=== PATIENT | female | born 1945 | race Caucasian/White ===

== ENCOUNTER 2016-09-18 15:07 | Inpatient (IN) | payer MEDICARE, OTHER ==
[2016-09-18 11:55] LABS: HCT 42.4 % (37.0-47.0); HGB 14.8 g/dl (12.5-16.0); MCH 30.3 pg (25.0-31.0); MCHC 34.9 g/dL (32.0-36.0); MCV 86.9 fL (78.0-100.0); MPV 10.5 fL (6.0-9.5); RBC 4.88 M/uL (4.20-5.40); RDW 12.9 % (11.5-14.0); WBC 8.2 K/uL (4.0-10.5)
[2016-09-18 12:04] LABS: INR 1.03 (0.9-1.2); PROTHROMBIN TIME 13.1 SECONDS (11.7-14.0)
[2016-09-18 12:05] LABS: PTT 28.9 SECONDS (23.2-31.4)
[2016-09-18 12:11] LABS: ALBUMIN 4.9 g/dL (3.4-4.8); BILIRUBIN - TOTAL 0.4 mg/dL (0.1-1.0); CREATININE 0.5 mg/dL (0.5-1.0); POTASSIUM 4.5 mmol/L (3.5-5.1); TOTAL PROTEIN 7.9 g/dL (6.4-8.3)
[~2016-09-18 15:07] MED LIST: AMBIEN5 MG PO; ASPIRIN CHEWABL81 MG PO; FIORICET1 EACH PO; LIPITOR40 MG PO; LOVAZA1 GM PO; PROTONIX40 MG PO; TIMOPTIC OU; VITAMIN D5000 UNIT PO; ZESTORETIC 20-1 EAC1 PO
[2016-09-19 04:27] LABS: HCT 32.7 % (37.0-47.0); HGB 11.1 g/dl (12.5-16.0); MCH 30.5 pg (25.0-31.0); MCHC 33.9 g/dL (32.0-36.0); MCV 89.8 fL (78.0-100.0); RBC 3.64 M/uL (4.20-5.40); RDW 12.5 % (11.5-14.0)
[2016-09-19 04:30] LABS: WBC 19.3 K/uL (4.0-10.5)
[2016-09-19 04:36] LABS: CREATININE 0.6 mg/dL (0.5-1.0); POTASSIUM 3.2 mmol/L (3.5-5.1)
[2016-09-20 05:09] LABS: HCT 29.5 % (37.0-47.0); HGB 9.9 g/dl (12.5-16.0); MCH 30.5 pg (25.0-31.0); MCHC 33.6 g/dL (32.0-36.0); MCV 90.8 fL (78.0-100.0); MPV 10.5 fL (6.0-9.5); RBC 3.25 M/uL (4.20-5.40); RDW 12.5 % (11.5-14.0); WBC 12.3 K/uL (4.0-10.5)
[2016-09-20 05:32] LABS: CREATININE 0.6 mg/dL (0.5-1.0)
[2016-09-21 05:20] LABS: BASOPHIL 0.3 % (0-2); EOSINOPHIL 1.7 % (0-7); HCT 29.1 % (37.0-47.0); HGB 9.7 g/dl (12.5-16.0); LYMPHOCYTE 19.6 % (15-48); MCH 30.6 pg (25.0-31.0); MCHC 33.3 g/dL (32.0-36.0); MCV 91.8 fL (78.0-100.0); MONOCYTE 14.4 % (0-12); MPV 10.6 fL (6.0-9.5); PLT 263 K/uL (150-400); RBC 3.17 M/uL (4.20-5.40); RDW 12.5 % (11.5-14.0); WBC 11.8 K/uL (4.0-10.5)
[2016-09-21 05:39] LABS: CREATININE 0.5 mg/dL (0.5-1.0); MAGNESIUM 1.85 mg/dL (1.40-2.10)
[2016-09-22 05:20] LABS: HCT 26.7 % (37.0-47.0); HGB 8.9 g/dl (12.5-16.0); MCH 30.5 pg (25.0-31.0); MCHC 33.3 g/dL (32.0-36.0); MCV 91.4 fL (78.0-100.0); MPV 10.8 fL (6.0-9.5); RBC 2.92 M/uL (4.20-5.40); RDW 12.5 % (11.5-14.0); WBC 9.8 K/uL (4.0-10.5)
[2016-09-22 06:54] LABS: CREATININE 0.6 mg/dL (0.5-1.0); POTASSIUM 3.6 mmol/L (3.5-5.1)
[2016-09-23 05:03] LABS: HCT 28.1 % (37.0-47.0); HGB 9.3 g/dl (12.5-16.0); MCH 30.2 pg (25.0-31.0); MCHC 33.1 g/dL (32.0-36.0); MCV 91.2 fL (78.0-100.0); MPV 10.5 fL (6.0-9.5); RBC 3.08 M/uL (4.20-5.40); RDW 12.6 % (11.5-14.0); WBC 8.9 K/uL (4.0-10.5)
[2016-09-23 05:35] LABS: CREATININE 0.6 mg/dL (0.5-1.0); POTASSIUM 3.8 mmol/L (3.5-5.1)
== END 2016-09-23 15:35 | DRG 470 ==
LOC: FMS 15:07
PROVIDERS: Internal Medicine; Internal Medicine Nephrology; ADMIT Legal Medicine
PROC: 0SRB04Z Replacement of Left Hip Joint with Ceramic on Polyethylene Synthetic Substitute, Open Approach (ICD-10-PCS; principal; 2016-09-18 13:00)
DX: M16.12 Unilateral primary osteoarthritis, left hip (principal); E87.1 Hypo-osmolality and hyponatremia; I10 Essential (primary) hypertension; I95.81 Postprocedural hypotension; F41.9 Anxiety disorder, unspecified; K21.9 Gastro-esophageal reflux disease without esophagitis; M19.90 Unspecified osteoarthritis, unspecified site; Z22.322 Carrier or suspected carrier of Methicillin resistant Staphylococcus aureus; Z88.1 Allergy status to other antibiotic agents; Z88.8 Allergy status to other drugs, medicaments and biological substances
CPT/HCPCS: 36415; 71010; 73501; 76000; 80048; 80053; 83735; 85025; 85610; 85730; 87040; 88304; 88311; 94010; 94667; 94668; 94762; 97110; 97116; 97162; 97166; 97530; 97530-GP; 97535; C1776; J0131; J0697; J1100; J1170; J1885; J2270; J2405; J2704; J2710; J2795; J3010

== ENCOUNTER 2016-09-23 15:33 | Inpatient (IN) | payer MEDICARE, OTHER | END 2016-10-06 10:34 | disposition home or self-care (01) | DRG 560 | LOC: FSNU 15:33 | PROVIDERS: ADMIT Legal Medicine | DX: Z47.1 Aftercare following joint replacement surgery (principal); E87.1 Hypo-osmolality and hyponatremia; I95.81 Postprocedural hypotension; Z96.642 Presence of left artificial hip joint; I10 Essential (primary) hypertension; K21.9 Gastro-esophageal reflux disease without esophagitis; F41.9 Anxiety disorder, unspecified; D72.829 Elevated white blood cell count, unspecified | CPT/HCPCS: 97110; 97116; 97161; 97165; 97530; 97530-GP; 97535; 97537 ==

== ENCOUNTER 2016-11-28 10:40 | Emergency (ER) | payer MEDICARE, OTHER ==
[2016-11-28 12:11] LABS: BILIRUBIN NEGATIVE (NEGATIVE); BLOOD NEGATIVE Ery/uL (NEGATIVE); CLARITY CLEAR (CLEAR); COLOR YELLOW (YELLOW); GLUCOSE (U) NORMAL (NORMAL); KETONE (U) NEGATIVE (NEGATIVE); LEUKOCYTES TRACE Leu/uL (NEGATIVE); NITRITE NEGATIVE (NEGATIVE); PROTEIN NEGATIVE (NEGATIVE); SPECIFIC GRAVITY <=1.005 (1.001-1.030); UROBILINOGEN 0.2 mg/dL (0.2-1.0); pH 6.5 (5.0-9.0)
[2016-11-28 12:15] LABS: BACTERIA TRACE
[2016-11-28 12:44] LABS: BASOPHIL 0.6 % (0-2); HCT 42.4 % (37.0-47.0); HGB 14.2 g/dl (12.5-16.0); LYMPHOCYTE 29.5 % (15-48); MCH 28.7 pg (25.0-31.0); MCHC 33.5 g/dL (32.0-36.0); MCV 85.7 fL (78.0-100.0); MONOCYTE 9.6 % (0-12); MPV 9.8 fL (6.0-9.5); NEUTROPHIL 59.3 % (41-80); PLT 338 K/uL (150-400); RBC 4.95 M/uL (4.20-5.40); RDW 13.4 % (11.5-14.0)
[2016-11-28 13:00] LABS: ALBUMIN 4.4 g/dL (3.4-4.8); BILIRUBIN - TOTAL 0.2 mg/dL (0.1-1.0); CREATININE 0.7 mg/dL (0.5-1.0); POTASSIUM 3.7 mmol/L (3.5-5.1); TOTAL PROTEIN 7.4 g/dL (6.4-8.3)
== END 2016-11-28 13:11 | disposition home or self-care (01) ==
LOC: FER 10:40
PROVIDERS: Nurse Practitioner Family
DX: M25.552 Pain in left hip (principal); I10 Essential (primary) hypertension; K21.9 Gastro-esophageal reflux disease without esophagitis; F41.9 Anxiety disorder, unspecified; Z88.8 Allergy status to other drugs, medicaments and biological substances; Z88.1 Allergy status to other antibiotic agents; Z79.82 Long term (current) use of aspirin; Z79.899 Other long term (current) drug therapy
CPT/HCPCS: 36415; 72170; 73502; 80053; 81001; 85025; 93971